=== PATIENT | female | born 1955 | race Caucasian/White ===

== ENCOUNTER 2020-09-07 07:38 | Emergency (ER) | payer OTHER ==
[~2020-09-07] VITALS: Ht 167.6 cm; Wt 68.5 kg
[2020-09-07 07:45] VITALS: Ht 167.6 cm; Wt 68.5 kg
[2020-09-07 08:33] LABS: BASOPHIL % 0.5 % (0.2-1.3); PLATELET COUNT 193 x10^3mcL (179-408); RED CELL DISTRIBUTION WIDTH 13.9 % (12.3-17.7)
[2020-09-07 08:42] LABS: CALCIUM 8.7 mg/dL (8.5-10.1); CARBON DIOXIDE 22.2 mmol/L (21-32); CHLORIDE SERUM 100 mmol/L (98-107); CREATININE SERUM 0.8 mg/dL (0.6-1.0); GFR1 > 60 mL/min; GLUCOSE SERUM 227 mg/dL (74-106); POTASSIUM SERUM 4.1 mmol/L (3.5-5.1); SODIUM SERUM 140 mmol/L (136-145)
[2020-09-07 08:46] LABS: ALBUMIN 4.1 g/dL (3.4-5.0); ALKALINE PHOSPHATASE 143 U/L (46-116); ALT/SGPT 87 U/L (14-59); AST/SGOT 267 U/L (15-37); BILIRUBIN TOTAL 0.57 mg/dL (0.20-1.00); MAGNESIUM 1.9 mg/dL (1.8-2.4); TOTAL PROTEIN, SERUM 7.7 g/dL (6.4-8.2)
[2020-09-07 11:01] LABS: UA SPECIFIC GRAVITY >=1.030 (1.005-1.035); microscopic required? YES; urine erythrocyte TRACE (NEGATIVE)
[2020-09-07] MEDS ORDERED: MULTIPLE VITAMI1 T13 PO (12:56)
[2020-09-07] MEDS ORDERED: ZESTRIL20 MG PO (12:56)
[2020-09-07] MEDS ORDERED: ATIVAN1 MG PO (12:56)
[2020-09-07 14:37] VITALS: BP 140/79
== END 2020-09-07 14:37 | disposition home or self-care (01) ==
LOC: ED 07:38
PROVIDERS: Emergency Medicine
DX: F10.129 Alcohol abuse with intoxication, unspecified (principal); I10 Essential (primary) hypertension; E11.65 Type 2 diabetes mellitus with hyperglycemia; E78.00 Pure hypercholesterolemia, unspecified
CPT/HCPCS: G0480; J2060; J3411; J3490; J7030